=== PATIENT | male | born 1990 | race Two or more races ===

== ENCOUNTER 2017-10-19 19:21 | Inpatient (IN) | payer OTHER ==
[2017-10-19] MEDS ORDERED: VANCOMYCIN IV PER PHARMACY XX (21:00)
[2017-10-19] MEDS ORDERED: morphine 2 MG INJ IV (21:00)
[2017-10-19] MEDS ORDERED: GLUCOSE GEL 15 GRAM TUBE BUCCAL (21:30)
[2017-10-19] MEDS ORDERED: DEXTROSE 50% 50 ML SYRINGE IV ×2 (21:30)
[2017-10-19] MEDS ORDERED: GLUCOSE GEL 15 GRAM TUBE PO ×2 (21:30)
[2017-10-19] MEDS ORDERED: GLUCAGON 1 MG INJ IM (21:30)
[2017-10-19] MEDS: INSULIN ASPART [NOVOLOG] 3 ML PEN SC (22:08)
[2017-10-19] MEDS: SOD CHLORIDE 0.9% 1,000 ML IV (22:09)
[2017-10-19] MEDS: LEVOFLOXACIN 500MG/D5W (PMX) 100 ML IVPB (22:09)
[2017-10-19] MEDS ORDERED: PENDING SANTYL ORDER FOR WOUND CARE XX (23:30)
[2017-10-20] MEDS: VANCOMYCIN 1.5 GM in SOD CHLORIDE 0.9% 250 ML IVPB ×3 (00:07→16:11)
[2017-10-20] MEDS: ACCU-CHEK XX (02:00)
[2017-10-20] MEDS: HYDROCODONE/APAP (5/325) TAB PO ×2 (02:41→15:17)
[2017-10-20 08:04] LABS: ADD MAN DIFF? NO
[2017-10-20 08:08] LABS: BASOPHILS % 0.4 % (0.0-2.0); EOSINOPHILS # 0.1 10^3/ul (0.0-0.5); EOSINOPHILS % 1.2 % (0.0-7.0); HEMOGLOBIN 12.3 g/dl (14.0-18.0); LYMPHOCYTES % 32.2 % (15.0-51.0); MEAN CORPUSCULAR HEMOGLOBIN 27.7 pg (29.0-33.0); MEAN CORPUSCULAR HGB CONC 32.4 g/dl (32.0-37.0); MEAN CORPUSCULAR VOLUME 85.6 fl (82.0-101.0); MEAN PLATELET VOLUME 11.1 fl (7.4-10.4); MONOCYTE # 0.7 10^3/ul (0.3-0.9); MONOCYTES % 7.4 % (0.0-11.0); NEUTROPHIL # 5.4 10^3/ul (1.6-7.5); NEUTROPHILS % 58.3 % (39.0-77.0); PLATELET COUNT 284 10^3/UL (140-415); RED BLOOD COUNT 4.44 10^6/ul (4.70-6.10); RED CELL DISTRIBUTION WIDTH 13.2 % (11.5-14.5)
[2017-10-20 08:08] LABS: WHITE BLOOD COUNT 9.3 10^3/ul (4.8-10.8)
[2017-10-20] MEDS: INSULIN ASPART [NOVOLOG] 3 ML PEN SC ×4 (08:20→20:47)
[2017-10-20 08:35] LABS: ANION GAP 12 (8-16); BLOOD UREA NITROGEN 10 mg/dl (7-20); CARBON DIOXIDE 27 mmol/L (21-31); CHLORIDE 105 mmol/L (97-110); GLUCOSE 252 mg/dl (70-220); POTASSIUM 4.2 mmol/L (3.5-5.1); SODIUM 140 mmol/L (135-144)
[2017-10-20] MEDS: SOD CHLORIDE 0.9% 1,000 ML IV (11:18)
[2017-10-20] MEDS ORDERED: morphine LIQ (10 MG/5 ML) CUP PO (15:30)
[2017-10-20 15:53] LABS: VANCOMYCIN,TROUGH 13.4 ug/ml (10.0-20.0)
[2017-10-20] MEDS: INSULIN GLARGINE [LANtus] 3 ML PEN SC (20:46)
[2017-10-20] MEDS: LEVOFLOXACIN 500MG/D5W (PMX) 100 ML IVPB (20:50)
[2017-10-21] MEDS: VANCOMYCIN 1.5 GM in SOD CHLORIDE 0.9% 250 ML IVPB ×4 (00:15→23:55)
[2017-10-21] MEDS: SOD CHLORIDE 0.9% 1,000 ML IV ×3 (01:36→23:55)
[2017-10-21] MEDS: ACCU-CHEK XX (01:58)
[2017-10-21] MEDS: INSULIN ASPART [NOVOLOG] 3 ML PEN SC ×7 (08:40→21:00)
[2017-10-21] MEDS: HYDROCODONE/APAP (5/325) TAB PO ×2 (09:04→16:25)
[2017-10-21] MEDS ORDERED: INSULIN ASPART [NOVOLOG] 3 ML PEN SC ×3 (12:00→18:05)
[2017-10-21] MEDS ORDERED: LABETALOL HCL 20MG INJ IV (21:00)
[2017-10-21] MEDS ORDERED: OXYCODONE/ACETAMINOPHEN (5/325) TAB PO (21:00)
[2017-10-21] MEDS ORDERED: DIPHENHYDRAMINE 50 MG INJ IV (21:00)
[2017-10-21] MEDS ORDERED: HYDROmorphONE 1 MG/5 ML IV SYRINGE IV ×3 (21:00)
[2017-10-21] MEDS ORDERED: MIDAZOLAM 1 MG/ML 2 ML INJ IV (21:00)
[2017-10-21] MEDS ORDERED: hydrALAzine 20 MG INJ IV (21:00)
[2017-10-21] MEDS ORDERED: EPHEDrine SULFATE 50 MG/5 ML SYG IV (21:00)
[2017-10-21] MEDS ORDERED: METOCLOPRAMIDE 10 MG INJ IV (21:00)
[2017-10-21] MEDS ORDERED: MEPERIDINE 25 MG INJ IV (21:00)
[2017-10-21] MEDS: LEVOFLOXACIN 500MG/D5W (PMX) 100 ML IVPB (21:00)
[2017-10-21] MEDS ORDERED: FENTAnyl 50 MCG/ML VIAL IV ×3 (21:00)
[2017-10-21] MEDS ORDERED: ONDANSETRON 4 MG INJ IV (21:00)
[2017-10-21] MEDS ORDERED: PROPOFOL 20 ML (21:38)
[2017-10-21] MEDS ORDERED: MIDAZOLAM 1 MG/ML 2 ML INJ (21:39)
[2017-10-21] MEDS ORDERED: FENTAnyl 50 MCG/ML VIAL (21:39)
[2017-10-21] MEDS: LIDOCAINE 1% (MPF) 30 ML INJ (22:14)
[2017-10-21] MEDS: OXYCODONE/ACETAMINOPHEN (5/325) TAB PO (22:49)
[2017-10-21] MEDS: INSULIN GLARGINE [LANtus] 3 ML PEN SC (23:55)
[2017-10-22] MEDS ORDERED: ACCU-CHEK XX (02:00)
[2017-10-22] MEDS: ACCU-CHEK XX (02:00)
[2017-10-22] MEDS: HYDROCODONE/APAP (5/325) TAB PO (04:04)
[2017-10-22 07:48] LABS: BLOOD UREA NITROGEN 6 mg/dl (7-20)
[2017-10-22 07:48] LABS: CREATININE 0.58 mg/dl (0.61-1.24)
[2017-10-22] MEDS ORDERED: INSULIN ASPART [NOVOLOG] 3 ML PEN SC (08:00)
[2017-10-22] MEDS: VANCOMYCIN 1.5 GM in SOD CHLORIDE 0.9% 250 ML IVPB ×3 (08:25→23:42)
[2017-10-22] MEDS: INSULIN ASPART [NOVOLOG] 3 ML PEN SC ×7 (08:31→20:40)
[2017-10-22] MEDS: LINAGLIPTIN 5 MG TABLET PO (11:16)
[2017-10-22] MEDS: PANTOPRAZOLE (EC) 40 MG TAB PO (11:17)
[2017-10-22] MEDS: ACETAMINOPHEN 325 MG TAB PO ×2 (11:23→20:34)
[2017-10-22] MEDS: LEVOFLOXACIN 500MG/D5W (PMX) 100 ML IVPB (20:34)
[2017-10-22] MEDS: INSULIN GLARGINE [LANtus] 3 ML PEN SC (20:39)
[2017-10-23] MEDS: ACCU-CHEK XX (02:00)
[2017-10-23] MEDS: ACETAMINOPHEN 325 MG TAB PO (03:59)
[2017-10-23 05:10] LABS: ADD MAN DIFF? NO
[2017-10-23 05:21] LABS: WHITE BLOOD COUNT 9.4 10^3/ul (4.8-10.8)
[2017-10-23 05:21] LABS: BASOPHILS % 0.3 % (0.0-2.0); EOSINOPHILS # 0.1 10^3/ul (0.0-0.5); EOSINOPHILS % 0.6 % (0.0-7.0); HEMATOCRIT 35.2 % (42.0-52.0); HEMOGLOBIN 11.7 g/dl (14.0-18.0); LYMPHOCYTES # 2.2 10^3/ul (0.8-2.9); LYMPHOCYTES % 23.1 % (15.0-51.0); MEAN CORPUSCULAR HGB CONC 33.2 g/dl (32.0-37.0); MEAN CORPUSCULAR VOLUME 84.2 fl (82.0-101.0); MONOCYTE # 0.7 10^3/ul (0.3-0.9); MONOCYTES % 7.5 % (0.0-11.0); NEUTROPHIL # 6.4 10^3/ul (1.6-7.5); NEUTROPHILS % 68.2 % (39.0-77.0); PLATELET COUNT 264 10^3/UL (140-415); RED BLOOD COUNT 4.18 10^6/ul (4.70-6.10); RED CELL DISTRIBUTION WIDTH 13.1 % (11.5-14.5)
[2017-10-23] MEDS: PANTOPRAZOLE (EC) 40 MG TAB PO (05:24)
[2017-10-23 05:52] LABS: ANION GAP 16 (8-16); BLOOD UREA NITROGEN 7 mg/dl (7-20); CALCIUM 8.6 mg/dl (8.4-10.2); CARBON DIOXIDE 26 mmol/L (21-31); CHLORIDE 105 mmol/L (97-110); GLUCOSE 156 mg/dl (70-220); POTASSIUM 3.4 mmol/L (3.5-5.1); SODIUM 144 mmol/L (135-144)
[2017-10-23] MEDS: INSULIN ASPART [NOVOLOG] 3 ML PEN SC ×4 (08:33→12:09)
[2017-10-23] MEDS: VANCOMYCIN 1.5 GM in SOD CHLORIDE 0.9% 250 ML IVPB (08:34)
[2017-10-23] MEDS: LINAGLIPTIN 5 MG TABLET PO (08:35)
[2017-10-23] MEDS: POTASSIUM CHLORIDE 20 MEQ POWDER FOR ORAL SOLN PO (10:03)
== END 2017-10-23 13:49 | disposition home or self-care (01) | DRG 572 ==
LOC: PP2 10-23 02:58 → MS4 19:21
PROVIDERS: Internal Medicine Nephrology
PROC: 0JBP0ZZ Excision of Left Lower Leg Subcutaneous Tissue and Fascia, Open Approach (ICD-10-PCS; principal; 2017-10-21 20:30)
DX: L02.214 Cutaneous abscess of groin (principal); E11.9 Type 2 diabetes mellitus without complications; E66.9 Obesity, unspecified; Z68.36 Body mass index [BMI] 36.0-36.9, adult
CPT/HCPCS: 80048; 80202; 82565; 82962; 83036; 84520; 85025; 87070; 87075; 87081; 87102; 87116